=== PATIENT | female | born 1945 | race Hispanic/Latino ===

== ENCOUNTER 2017-07-10 18:17 | Emergency (ER) | payer BC ==
--- NOTE | 2017-07-10 18:40 | ED PDOC ---
Arrival/HPI - General Time Seen by Provider: 07/10/17 18:40 Historian: Patient - History of Present Illness Narrative History of Present Illness (Text): 07/10/17 18:40 This 72 yo female with pmh alzheimer, dementia, presents to this ED c/o head injury, and left hand pain. Allergies/Home Meds Allergies/Adverse Reactions: Allergies No Known Allergies Allergy (Verified 07/10/17 18:41) Physical Exam Vital Signs Temp Pulse Resp BP Pulse Ox 07/10/17 19:40 98.0 F 55 L 18 137/68 100 Medical Decision Making ED Course and Treatment: 07/10/17 20:30 Re-evaluation. Patient feels better. Discussed results and plan with patient and family who expresses understanding. All questions answered and there is agreement with the plan to discharge home with instructions. Patient stable for discharge. Return if symptoms persist or worsen. Gutter splint positioned Re-evaluation Time: 20:30 Reassessment Condition: Re-examined, Improved - RAD Interpretation Narrative RAD Interpretations (Text): 07/10/17 19:38 PROCEDURE: CT HEAD WITHOUT CONTRAST. FINDINGS: HEMORRHAGE: No intracranial hemorrhage. BRAIN: No mass effect or edema. Atrophy and mild white matter changes are noted. VENTRICLES: Unremarkable. No hydrocephalus. CALVARIUM: Unremarkable. PARANASAL SINUSES: Unremarkable as visualized. No significant inflammatory changes. MASTOID AIR CELLS: Unremarkable as visualized. No inflammatory changes. OTHER FINDINGS: None. IMPRESSION: No evidence of acute intracranial hemorrhage intracranial collection mass effect or midline shift. Mild atrophy. Hand X-rays: (+) left base of 5th metacarpal Fx. Wrist x-rays: See hand x-rays Knee x-rays: Moderate DJD. No Fx. Radiology Orders: 07/10/17 18:49 WRIST, LEFT 3 VIEWS [RAD] Stat 07/10/17 18:50 HAND LEFT 3 VIEWS ROUTINE [RAD] Stat 07/10/17 18:51 HEAD W/O CONTRAST [CT] Stat KNEE WITH PATELLA LEFT 3 VIEW [RAD] Stat - Medication Orders Current Medication Orders: Discontinued Medications Tetanus/Reduced Diphtheria/Acell Pertussis (Boostrix Vaccine Inj) 0.5 ml IM .ONCE ONE Stop: 07/10/17 18:52 Last Admin: 07/10/17 19:11 Dose: 0.5 ml MAR Immunization Data Document 07/10/17 19:11 MS (Rec: 07/10/17 19:11 MS [id number]) Immunization Data Vaccine Information Sheet Given Yes Immunization Registry Document 07/10/17 19:11 MS (Rec: 07/10/17 19:11 MS [id number]) Immunization Registry Consent Date 07/10/17 Disposition/Present on Arrival - Present on Arrival Any Indicators Present on Arrival: No History of DVT/PE: No History of Uncontrolled Diabetes: No Urinary Catheter: No History of Decub. Ulcer: No - Disposition Have Diagnosis and Disposition been Completed?: Yes Diagnosis: Fracture of base of metacarpal Disposition: HOME/ ROUTINE Disposition Time: 20:30 Patient Plan: Discharge Condition: GOOD Discharge Instructions (ExitCare): Hand Fracture (DC) Additional Instructions: Call private doctor for follow up visit in 1-2 days. Call Hand doctor for revaluation this week. Keep hand elevated, rest, splint till evaluated by hand doctor. Return to emergency if pain worsen. Take Motrin or Tylenol for pain as needed. keep splint clean and dry Prescriptions: Ibuprofen [Motrin] 400 mg PO Q8H PRN #20 tab PRN Reason: Pain, Severe (8-10) Referrals: Kevyn Sebastian [Primary Care Provider] - Follow up with primary Shashank Deleon MD [Staff Provider] - Follow up with primary Forms: Tang Song (Chinese)
[2017-07-10] MEDS ORDERED: TDAP Vaccine 0.5 mL Syr IM ONE (18:51)
--- NOTE | 2017-07-10 19:34 | CT ---
PROCEDURE: CT HEAD WITHOUT CONTRAST. HISTORY: head injury s/p fall COMPARISON: None available. TECHNIQUE: Axial computed tomography images were obtained through the head/brain without intravenous contrast. Radiation dose: Total exam DLP = 853.07 mGy-cm. This CT exam was performed using one or more of the following dose reduction techniques: Automated exposure control, adjustment of the mA and/or kV according to patient size, and/or use of iterative reconstruction technique. FINDINGS: HEMORRHAGE: No intracranial hemorrhage. BRAIN: No mass effect or edema. Atrophy and mild white matter changes are noted. VENTRICLES: Unremarkable. No hydrocephalus. CALVARIUM: Unremarkable. PARANASAL SINUSES: Unremarkable as visualized. No significant inflammatory changes. MASTOID AIR CELLS: Unremarkable as visualized. No inflammatory changes. OTHER FINDINGS: None. IMPRESSION: No evidence of acute intracranial hemorrhage intracranial collection mass effect or midline shift. Mild atrophy.
[2017-07-10 20:26] VITALS: TEMP 98
[2017-07-10 20:51] VITALS: BP 130/66; PULSE 61; RESP 16; O2SAT 99
--- NOTE | 2017-07-11 08:13 | RAD ---
PROCEDURE: Left Hand Radiographs. HISTORY: pain s/p fall COMPARISON: None. FINDINGS: BONES: There is a nondisplaced fracture through the base of the 5th metacarpal JOINTS: Normal. No osteoarthritic changes. SOFT TISSUES: Normal. OTHER FINDINGS: None. IMPRESSION: There is a nondisplaced fracture through the base of the 5th metacarpal
--- NOTE | 2017-07-11 08:15 | RAD ---
PROCEDURE: Left Knee and patella Radiographs. HISTORY: Pain. COMPARISON: None. FINDINGS: BONES: Normal. No fracture. JOINTS: There is joint space narrowing in the lateral compartment with osteophyte formation. There is severe degeneration of the patellofemoral joint JOINT EFFUSION: None. OTHER FINDINGS: None. IMPRESSION: Osteoarthritis
--- NOTE | 2017-07-11 08:16 | RAD ---
PROCEDURE: Left Wrist Radiographs. HISTORY: pain COMPARISON: None. FINDINGS: BONES: Normal. No fracture. JOINTS: Normal. No dislocation. SOFT TISSUES: Normal. OTHER FINDINGS: None. IMPRESSION: Normal left wrist radiographs.
== END 2017-07-10 20:50 | disposition home or self-care (01) ==
LOC: ED 18:17 → MERGE 18:17 → ED 20:50
DX: S62.317A Displaced fracture of base of fifth metacarpal bone, left hand, initial encounter for closed fracture (principal); W19.XXXA Unspecified fall, initial encounter; Y92.9 Unspecified place or not applicable; G30.9 Alzheimer's disease, unspecified; F02.80 Dementia in other diseases classified elsewhere, unspecified severity, without behavioral disturbance, psychotic disturbance, mood disturbance, and anxiety; Z23 Encounter for immunization